=== PATIENT | female | born 1985 | race Asian ===

== ENCOUNTER 2017-08-04 00:35 | Inpatient (IN) | payer SELFPAY ==
[~2017-08-04] VITALS: Ht 158 cm; Wt 55.3 kg
[2017-08-04] MEDS ORDERED: OXYTOCIN 20 UNITS in LACTATED RINGERS 1,000 ML IV SCH (01:01)
[2017-08-04] MEDS ORDERED: PROMETHAZINE 25 MG/ML VIAL IVP PRN (01:05)
[2017-08-04] MEDS ORDERED: METHYLERGONOVINE 0.2 MG/ML AMP IM PRN ×2 (01:05→05:55)
[2017-08-04] MEDS ORDERED: NALBUPHINE 10 MG/ML AMP IVP PRN (01:05)
[2017-08-04] MEDS ORDERED: CARBOPROST 250 MCG/ML AMP IM PRN (01:05)
[2017-08-04] MEDS: LACTATED RINGERS 1,000 ML IV SCH ×2 (01:19→03:50)
[2017-08-04 01:25] LABS: BASOPHILS % (AUTO) 0.3 % (0.0-2.0); EOSINOPHILS % (AUTO) 0.5 % (0.0-4.0); HEMOGLOBIN 10.6 g/dL (12.0-16.0); LYMPHOCYTES # (AUTO) 1.8 K/uL (2.5-16.5); MEAN CORPUSCULAR HEMOGLOBIN 29 pg (27-31); MEAN CORPUSCULAR HGB CONC 33 g/dL (33-37); MEAN CORPUSCULAR VOLUME 87.1 fL (80-94); MONOCYTES # (AUTO) 0.6 K/uL (0.8-1.0); NEUTROPHILS % (AUTO) 67.2 % (42.2-75.2); PLATELET COUNT (AUTO) 137 K/uL (140-450); RED BLOOD CELL COUNT(AUTO) 3.67 MIL/uL (4.20-5.40); RED CELL DISTRIBUTION WIDTH 14.5 % (11.6-13.7); WHITE BLOOD COUNT (AUTO) 7.4 K/uL (4.8-10.8)
[2017-08-04 01:25] LABS: APPEARANCE,URINE SL CLOUDY (CLEAR); BILIRUBIN,URINE NEGATIVE (NEGATIVE); BLOOD, URINE TRACE-L (NEGATIVE); COLOR,URINE YELLOW (YELLOW); LEUKOCYTE ESTERASE ,URINE NEGATIVE (NEGATIVE); NITRITE, URINE NEGATIVE (NEGATIVE); PH,URINE 6.5 (5.0-9.0); UGLUCOSE NEGATIVE (NEGATIVE)
[2017-08-04 01:30] VITALS: BP 110/70
[2017-08-04] MEDS ORDERED: OXYTOCIN 10 UNITS/ML VIAL IM SCH (01:30)
[2017-08-04] MEDS ORDERED: NALBUPHINE 10 MG/ML AMP ONE (01:44)
[2017-08-04] MEDS ORDERED: PROMETHAZINE 25 MG/ML VIAL ONE (01:44)
[2017-08-04 02:31] LABS: RBC,URINE 3-10 (FEW) /HPF (0-5); WBC,URINE 60-80 /HPF (0-5)
[2017-08-04] MEDS ORDERED: OXYTOCIN 20 UNITS/LR PREMIX 1,000 ML IV ONE (02:47)
[2017-08-04] MEDS ORDERED: BUPIVACAINE 0.125%/NS PREMIX 250 ML ONE (03:05)
[2017-08-04] MEDS ORDERED: OXYTOCIN 10 UNITS/ML VIAL IM PRN (05:55)
[2017-08-04] MEDS ORDERED: oxyCODONE/APAP 5/325 MG 1 TAB TAB PO PRN (05:55)
[2017-08-04] MEDS ORDERED: MEASLES, MUMPS, AND RUBELLA 1 VIAL SQVAC PRN (05:55)
[2017-08-04] MEDS ORDERED: BENZOCAINE/MENTHOL 20%-0.5% 60 GM CAN TP PRN (05:55)
[2017-08-04] MEDS ORDERED: HYDROcodone/APAP 5/325 MG 1 TAB TAB PO PRN (05:55)
[2017-08-04] MEDS ORDERED: TEMAZEPAM 15 MG CAP PO PRN (05:55)
[2017-08-04] MEDS ORDERED: OXYTOCIN 10 UNITS/ML VIAL ONE (09:14)
--- NOTE | 2017-08-04 15:03 | NUR ---
PATIENT HAS BEEN SCREENED AND CATEGORIZED LOW NUTRITION RISK. PATIENT WILL BE SEEN WITHIN 7 DAYS OF ADMISSION. 08/10/[address]
[2017-08-04] MEDS: BETHANECHOL 25 MG TAB PO PRN ×2 (15:41→20:28)
[2017-08-04] MEDS: IBUPROFEN 800 MG TAB PO PRN ×2 (17:30→23:43)
[2017-08-04] MEDS ORDERED: DOCUSATE SOD/SENNA 50/8.6 MG 1 TAB PO SCH (21:00)
[2017-08-05 06:41] LABS: HEMATOCRIT 28.1 % (36-48); HEMOGLOBIN 9.2 g/dL (12.0-16.0)
[2017-08-05] MEDS: BETHANECHOL 25 MG TAB PO PRN ×3 (07:08→17:44)
[2017-08-05] MEDS: IBUPROFEN 800 MG TAB PO PRN ×2 (08:05→17:45)
[2017-08-05] MEDS ORDERED: AMPICILLIN 250 MG CAP PO SCH (12:00)
[2017-08-05] MEDS: AMPICILLIN 250 MG CAP PO SCH ×2 (12:20→17:45)
[2017-08-05] MEDS ORDERED: HYDROcodone/APAP 5/325 MG 1 TAB TAB PO PRN ×2 (12:40)
[2017-08-05] MEDS ORDERED: SHARK OIL/PHENYLEPHRINE/COCOA 1 SUPP RC PRN (12:40)
[2017-08-05] MEDS ORDERED: SHARK OIL/PHENYLEPHRINE 60 GM TUBE TP PRN (13:15)
[2017-08-06] MEDS: AMPICILLIN 250 MG CAP PO SCH ×3 (00:02→12:45)
[2017-08-06] MEDS: BETHANECHOL 25 MG TAB PO PRN ×3 (05:49→12:44)
[2017-08-06] MEDS: IBUPROFEN 800 MG TAB PO PRN (12:45)
== END 2017-08-06 16:30 | disposition home or self-care (01) | DRG 775 ==
LOC: MLD 00:35 → MFCC 14:25
PROVIDERS: ADMIT Obstetrics & Gynecology; ATTEND Obstetrics & Gynecology
PROC: 3E0R3BZ Introduction of Anesthetic Agent into Spinal Canal, Percutaneous Approach (ICD-10-PCS; principal; 2017-08-04)
PROC: 10E0XZZ Delivery of Products of Conception, External Approach (ICD-10-PCS; 2017-08-04)
PROC: 00HU33Z Insertion of Infusion Device into Spinal Canal, Percutaneous Approach (ICD-10-PCS; 2017-08-04)
PROC: 3E033VJ Introduction of Other Hormone into Peripheral Vein, Percutaneous Approach (ICD-10-PCS; 2017-08-04)
PROC: 0HQ9XZZ Repair Perineum Skin, External Approach (ICD-10-PCS; 2017-08-04)
DX: O42.02 Full-term premature rupture of membranes, onset of labor within 24 hours of rupture (principal); O70.0 First degree perineal laceration during delivery; Z37.0 Single live birth; Z3A.38 38 weeks gestation of pregnancy; Z28.21 Immunization not carried out because of patient refusal
CPT/HCPCS: 36415; 51702; 59409; 81001; 85018; 85025; 86592; 86886; 86900; 86901; 87086; C1758; J2300; J2550; J2590; J3490; J7120